=== PATIENT | female | born 1995 | race Caucasian/White ===

== ENCOUNTER 2018-10-07 13:24 | Day surgery (SDC) | payer OTHER ==
[~2018-10-07 13:24] MED LIST: CEFAZOLIN 2 GM/D5W RTU 2 GM/50 ML RTUPB IV PRN; DISPOSABLE INJ PRN; MITOMYCIN INJ PRN
[2018-10-07] MEDS ORDERED: LIDOCAINE 2%/EPINEPHRINE INJ 1.7 ML CARTRIDGE ONE (13:38)
[2018-10-07] MEDS ORDERED: FENTANYL CITRATE INJ/PF 100 MCG/2 ML AMPUL ONE ×3 (13:48→16:43)
[2018-10-07] MEDS ORDERED: CARBOXYMETHYLCELLULOSE SOD 0.5% 0.4 ML DROPERETTE ONE (13:48)
[2018-10-07] MEDS ORDERED: MIDAZOLAM 2 MG/2 ML INJ ONE (13:48)
[2018-10-07] MEDS ORDERED: ONDANSETRON HCL INJ/PF 4 MG/2 ML SDV ONE (13:48)
[2018-10-07] MEDS ORDERED: DEXAMETHASONE SOD PHOS INJ 10 MG/1 ML VIAL ONE (13:49)
[2018-10-07] MEDS ORDERED: ROCURONIUM BROMIDE INJ 50 MG/5 ML VIAL IV ONE (13:49)
[2018-10-07] MEDS ORDERED: PROPOFOL INJ 200 MG/20 ML VIAL IV ONE (13:49)
[2018-10-07] MEDS ORDERED: SUCCINYLCHOLINE CHLORIDE INJ 200 MG/10 ML VIAL ONE (13:49)
[2018-10-07] MEDS ORDERED: DIPHENHYDRAMINE HCL 50 MG/ML VIAL ONE (13:50)
[2018-10-07] MEDS ORDERED: OXYMETAZOLINE HCL 0.05% NASAL SPRAY 15 ML BOTTLE ONE (14:59)
--- NOTE | 2018-10-07 16:59 | SURGICARE OPERATIVE REPORT E ---
[facility] Operative Report NAME: ERICKSON HERNANDEZ AGE: 23Y DATE OF SURGERY: 10/07/2018 ROOM: HISTORY: This is a 23-year-old female with a history of right microtia and right oral atresia. The patient has had osseointegrated implants placed for prosthetic ear. She has had skin overgrowth and presents today for debridement of the skin overgrowth of the osseointegrated implants. Informed consent was obtained from the patient. PREOPERATIVE DIAGNOSES: 1. RIGHT MICROTIA. 2. RIGHT CONGENITAL AURAL ATRESIA. 3. SKIN OVERGROWTH OSSEOINTEGRATED IMPLANT. POSTOPERATIVE DIAGNOSES: 1. RIGHT MICROTIA. 2. RIGHT CONGENITAL AURAL ATRESIA. 3. SKIN OVERGROWTH OSSEOINTEGRATED IMPLANT. PROCEDURE: Debridement of skin overgrowth over osseointegrated implants. SURGEON: USMAN HAMILTON MD ANESTHESIA: General via endotracheal intubation. DESCRIPTION OF PROCEDURE: After receiving informed consent from the patient she was taken to the operating room and placed supine on operating room table. After successful induction intubation by anesthesia the skin surrounding the osseointegrated implant was injected with 2% Xylocaine 1:100,000 epinephrine. The patient then prepped and draped in the sterile fashion. Starting with the most superior osseointegrated implant, using Iris scissors and a scalpel the skin was debrided to exposure the post and this was done on the 2 subsequent ones. On the most inferior one we sutured the edge of the skin down to the dermis to better expose the osseointegrated implant. As the skin in this area was more protuberant than on the previous other 2 osseointegrated implants. After the skin was debridement from the osseointegrated implants, Mitomycin-C in a concentration of 1 mg/1 mL was placed over each osseointegrated implant for 3 minutes. Bacitracin and a dressing was then applied. The patient tolerated the procedure well without any complications. The patient was given back to Anesthesia who successfully extubated the patient without complication. The estimated blood loss was minimal. Fluid 300 mL crystalloid. The patient was then transferred to postanesthesia care unit in stable condition with spontaneous respiration, no complication. DICTATING PHYSICIAN: USMAN HAMILTON M.D. [id number] Y#: [id number] ID: [id number] JOB#: [id number] ACCT: [id number] cc:USMAN HAMILTON MD > LONI
== END 2018-10-07 17:35 | disposition home or self-care (01) ==
LOC: SC 13:24
PROVIDERS: ATTEND Otolaryngology
DX: Q17.2 Microtia (principal); Q17.9 Congenital malformation of ear, unspecified; H90.11 Conductive hearing loss, unilateral, right ear, with unrestricted hearing on the contralateral side; T86.822 Skin graft (allograft) (autograft) infection; X58.XXXA Exposure to other specified factors, initial encounter; Z79.899 Other long term (current) drug therapy
CPT/HCPCS: 97597; J2250; J3490 ×5; J1200; J3010; J0330; J2405; J2704; J9280; J1100; J0690; 300